=== PATIENT | female | born 1945 | race Caucasian/White ===

== ENCOUNTER → 2018-07-25 | Outpatient (CLI) | payer MEDICARE ==
[2018-07-25 15:39] LABS: ABG BASE EXCESS 2.3 MMOL/L (-2.5-2.5); ABG OXYGEN SATURATION 94 % (94-100); ABG PCO2 44 MMHG (35-45); ABG PO2 66 MMHG (79-93); ABG TCO2 28.2 MMOL/L (21.0-31.0)
[2018-07-25 15:49] LABS: ALLENS TEST POS-NA; INSPIRED O2 ROOM AIR; VENTILATOR NO
== END ==
LOC: RT 15:03
PROVIDERS: ATTEND Nurse Practitioner Family
DX: R06.00 Dyspnea, unspecified (principal); R05 Cough; R06.89 Other abnormalities of breathing; R91.8 Other nonspecific abnormal finding of lung field; R09.02 Hypoxemia; G47.33 Obstructive sleep apnea (adult) (pediatric); G25.81 Restless legs syndrome; J30.2 Other seasonal allergic rhinitis
CPT/HCPCS: 82805; 94761